=== PATIENT | male | born 1975 | race African-American/Black ===

== ENCOUNTER 2018-02-20 11:07 | Emergency (ER) | payer OTHER ==
[~2018-02-20] VITALS: Ht 172.7 cm; Wt 67.4 kg
[2018-02-20 11:18] VITALS: TEMP 36.6; O2SAT 98; Ht 172.7 cm; Wt 67.4 kg
[2018-02-20] MEDS ORDERED: AMOX500C3 PO (11:34)
[2018-02-20] MEDS ORDERED: SODIUM CHLORIDE 0.9% 1000ML 1,000 ML IV STA (11:38)
[2018-02-20] MEDS ORDERED: SODIUM CHLORIDE 0.9% 1000ML 1,000 ML IV ONE (11:38)
--- NOTE | 2018-02-20 11:41 | EMERGENCY ROOM VISIT NOTE ---
History Report prepared by Yaneli: Randal Panchal Under the Supervision of: Dr. Daniel Torres M.D. First contact with patient: 11:31 Chief Complaint: CARDIAC ASSESSMENT Stated Complaint: SYNCOPE Nursing Triage Summary: pt was outside smoking found unresponsive at 0950. pt denies any chest pain, has neck pain on right side x1 week. on amoxicillin for abscess in left nare. lungs clear. History of Present Illness The patient is a 42 year old male who presents to the Emergency Room with complaints of a resolved episode of syncope that occurred about 2 hours prior to arrival. The patient was found unresponsive outside. He states the last thing he remembers was going outside to smoke a cigarette. He notes he does not drink a lot of fluids. He also complains of right sided neck pain for a week and shortness of breath. He denies melena, chest pain, headache, or abdominal pain. The patient notes he was told he has Hepatitis C but is not being treated. He did take a pill prior to this that he says was amoxicillin that he got from somebody else in care home. Denies that he was trying to hurt himself. 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 A total of 10 systems reviewed and were otherwise negative. Past Medical & Surgical Medical Problems: (1) Hepatitis C Old medical records were reviewed. Nurse's notes were reviewed and I agree with. Social History Smoking Status: Current Every Day Smoker Current/Historical Medications Miscellaneous Medications Amoxicillin (Amoxil), 1 TAB PO Allergies Coded Allergies: No Known Allergies (Unverified , 02/20/18) Physical Exam Vital Signs Date Time Temp Pulse Resp B/P (MAP) Pulse Ox O2 Delivery O2 Flow Rate FiO2 02/20/18 14:28 65 22 110/76 98 02/20/18 13:17 66 02/20/18 13:08 70 18 115/75 98 Room Air 02/20/18 12:12 58 16 109/71 98 Room Air 02/20/18 11:18 98 Room Air 02/20/18 11:18 36.6 63 18 103/72 98 Room Air 02/20/18 11:15 76 Physical Exam General: Non-ill appearing middle age male in no acute distress. HEENT: Normal cephalic atraumatic. Pupils are equal round and reactive to light. Extraocular movements are intact. Oropharynx is pink with moist mucous membranes. No swelling of the mouth lips or tongue. Neck: Supple with a midline trachea. No meningeal signs or stiffness, no JVD or bruits. No Stridor. Chest: Clear to auscultation bilaterally. No wheezes or rhonchi. No increased work of breathing. Heart: regular rate and rhythm. Abdomen: Soft nontender, nondistended without rebound guarding or rigidity. Extremities: No cyanosis clubbing or edema. No calf tenderness or assymetry Spine/Back. Non tender to palpation. No CVA tenderness Skin: Good turgor without rashes. Neurologic exam: Cranial nerves two through 12 are intact. Motor and sensation are intact and symmetrical throughout. Medical Decision & Procedures ER Provider Diagnostic Interpretation: Radiology results as stated below per my review and radiologist interpretation: CHEST ONE VIEW PORTABLE CLINICAL HISTORY: 42 years-old Male presenting with CHEST PAIN. TECHNIQUE: Portable upright AP view of the chest was obtained. COMPARISON: None. FINDINGS: Cardiomediastinal silhouette normal. Lungs and pleural spaces clear. Osseous structures normal. Upper abdomen normal. IMPRESSION: 1. No acute cardiopulmonary disease. Electronically signed by: Reji Hannah M.D. 02/20/2018 12:16 PM Dictated Date/Time: 02/20/2018 12:15 PM Laboratory Results 02/20/18 10:42 Red Blood Count 5.13, Mean Corpuscular Volume 93.6, Mean Corpuscular Hemoglobin 31.2, Mean Corpuscular Hemoglobin Concent 33.3, Mean Platelet Volume 11.4, Neutrophils (%) (Auto) 65.7, Lymphocytes (%) (Auto) 28.3, Monocytes (%) (Auto) 5.2, Eosinophils (%) (Auto) 0.6, Basophils (%) (Auto) 0.1, Neutrophils # (Auto) 4.66, Lymphocytes # (Auto) 2.01, Monocytes # (Auto) 0.37, Eosinophils # (Auto) 0.04, Basophils # (Auto) 0.01 02/20/18 10:42 Test 02/20/18 10:42 02/20/18 12:10 02/20/18 13:12 White Blood Count 7.10 K/uL (4.8-10.8) Red Blood Count 5.13 M/uL (4.7-6.1) Hemoglobin 16.0 g/dL (14.0-18.0) Hematocrit 48.0 % (42-52) Mean Corpuscular Volume 93.6 fL (80-100) Mean Corpuscular Hemoglobin 31.2 pg (25-34) Mean Corpuscular Hemoglobin Concent 33.3 g/dl (32-36) Platelet Count 162 K/uL (130-400) Mean Platelet Volume 11.4 fL (7.4-10.4) Neutrophils (%) (Auto) 65.7 % Lymphocytes (%) (Auto) 28.3 % Monocytes (%) (Auto) 5.2 % Eosinophils (%) (Auto) 0.6 % Basophils (%) (Auto) 0.1 % Neutrophils # (Auto) 4.66 K/uL (1.4-6.5) Lymphocytes # (Auto) 2.01 K/uL (1.2-3.4) Monocytes # (Auto) 0.37 K/uL (0.11-0.59) Eosinophils # (Auto) 0.04 K/uL (0-0.5) Basophils # (Auto) 0.01 K/uL (0-0.2) RDW Standard Deviation 42.8 fL (36.4-46.3) RDW Coefficient of Variation 12.5 % (11.5-14.5) Immature Granulocyte % (Auto) 0.1 % Immature Granulocyte # (Auto) 0.01 K/uL (0.00-0.02) Anion Gap 7.0 mmol/L (3-11) Est Creatinine Clear Calc Drug Dose 69.3 ml/min Estimated GFR () 76.7 Estimated GFR (Non- 66.2 BUN/Creatinine Ratio 8.2 (10-20) Calcium Level 8.5 mg/dl (8.5-10.1) Total Bilirubin 0.5 mg/dl (0.2-1) Direct Bilirubin 0.1 mg/dl (0-0.2) Aspartate Amino Transf (AST/SGOT) 38 U/L (15-37) Alanine Aminotransferase (ALT/SGPT) 60 U/L (12-78) Alkaline Phosphatase 71 U/L (45-117) Total Protein 7.2 gm/dl (6.4-8.2) Albumin 3.6 gm/dl (3.4-5.0) Lipase 168 U/L (73-393) Urine Opiates Screen NEG (NEG) Urine Methadone, Qualitative NEG (NEG) Urine Barbiturates NEG (NEG) Urine Phencyclidine (PCP) Level NEG (NEG) Ur Amphetamine/Methamphetamine NEG (NEG) MDMA (Ecstasy) Screen NEG (NEG) Urine Benzodiazepines Screen NEG (NEG) Urine Cocaine Metabolite NEG (NEG) Urine Marijuana (THC) NEG (NEG) Bedside Troponin I < 0.030 ng/ml (0-0.045) Laboratory studies as stated above per my review. Medications Administered Medications (Trade) Dose Ordered Sig/[place] Route Start Time Stop Time Status Last Admin Dose Admin Sodium Chloride 1,000 ml @ 999 mls/hr Q1H1M STAT IV 02/20/18 11:38 02/20/18 12:38 DC 02/20/18 12:10 999 MLS/HR Sodium Chloride 1,000 ml @ 200 mls/hr Q5H ONCE IV 02/20/18 11:38 02/20/18 15:14 DC 02/20/18 12:54 200 MLS/HR ECG Per My Interpretation Indication: syncope Rate (beats per minute): 65 Rhythm: normal sinus Findings: no acute ischemic change, no ectopy, other (early repolarization changes) Comparison ECG Date: no prior available ED Course 1131: Past medical records reviewed. The patient was evaluated in room A10, and a complete history and physical examination were performed. 1138: Ordered Sodium Chloride 1000 ml @ 200 mls/hr IV, Sodium Chloride 1000 ml @ 999 mls/hr IV. 1235: EKG from the custodial showed normal sinus rhythm with a rate of 74. Diffuse ST segment elevations with early repolarization changes. No old EKG. 1245: I checked on the patient. He is sleeping. 1410: Patient's second EKG shows normal sinus rhythm with a rate of 65. Early repolarization. No change from EKG #1. 1420: Upon reevaluation, the patient is resting comfortably and in no distress. I discussed the results and treatment plan with him. He verbalized agreement of the treatment plan. The patient was discharged home. Medical Decision Differential Diagnosis: syncope, arrhythmia, seizure, infection, toxicologic process, electrolyte or metabolic abnormality. This patient comes in as described above. He had a syncopal episode. This occurred after ingesting a pill that he says was amoxicillin. He was also hot and outside. He had no chest pain or shortness breath and is asymptomatic at present. EKG shows early repolarization but no definite ischemic changes otherwise. IV access established and he hydrated 1 L IV normal saline bolus. he had 2 EKGs here as well as 2 troponins that were both unremarkable and unchanged and there are no serial changes. There is no change compared to the one in the care home. He has no significant right or metabolic abnormalities. Chest x-ray is unremarkable. He has no neurologic symptoms. He has nothing to suggest sepsis or GI bleed. He is feeling better would like to go and will be discharged back to the custodial. Medication Reconcilliation Current Medication List: was personally reviewed by me Blood Pressure Screening Patient's blood pressure: Normal blood pressure Impression Primary Impression: Syncope Scribe Attestation The scribe's documentation has been prepared under my direction and personally reviewed by me in its entirety. I confirm that the note above accurately reflects all work, treatment, procedures, and medical decision making performed by me. Departure Information Dispostion Home / Self-Care Referrals Ginna CORRALES (PCP) Patient Instructions My [facility] [address] Additional Instructions Rest. Drink plenty of fluids Return if: Chest pain, shortness of breath, worsening symptoms, any new problems or concerns Follow-up with your doctor this week for recheck
[2018-02-20 11:50] LABS: BASO % 0.1 %; BASO ABS # 0.01 K/uL (0-0.2); EOS % 0.6 %; EOS ABS # 0.04 K/uL (0-0.5); IG# 0.01 K/uL (0.00-0.02); LYMPH % 28.3 %; LYMPH ABS # 2.01 K/uL (1.2-3.4); MEAN CELL VOLUME 93.6 fL (80-100); MEAN CORPUSCULAR HEMOGLOBIN 31.2 pg (25-34); MEAN CORPUSCULAR HGB CONC 33.3 g/dl (32-36); MEAN PLATELET VOLUME 11.4 fL (7.4-10.4); MONO % 5.2 %; MONO ABS # 0.37 K/uL (0.11-0.59); NEUT % 65.7 %; NEUT ABS # 4.66 K/uL (1.4-6.5); PLATELET COUNT 162 K/uL (130-400); RED CELL DISTRIBUTION WIDTH CV 12.5 % (11.5-14.5); RED CELL DISTRIBUTION WIDTH SD 42.8 fL (36.4-46.3)
[2018-02-20 12:11] LABS: ALBUMIN 3.6 gm/dl (3.4-5.0); CALCIUM 8.5 mg/dl (8.5-10.1); CREATININE 1.31 mg/dl (0.60-1.40); TOTAL PROTEIN 7.2 gm/dl (6.4-8.2)
--- NOTE | 2018-02-20 12:17 | DIAGNOSTIC IMAGING REPORT ---
CHEST ONE VIEW PORTABLE CLINICAL HISTORY: 42 years-old Male presenting with CHEST PAIN. TECHNIQUE: Portable upright AP view of the chest was obtained. COMPARISON: None. FINDINGS: Cardiomediastinal silhouette normal. Lungs and pleural spaces clear. Osseous structures normal. Upper abdomen normal. IMPRESSION: 1. No acute cardiopulmonary disease. Electronically signed by: Reji Hannah M.D. 02/20/2018 12:16 PM Dictated Date/Time: 02/20/2018 12:15 PM
[2018-02-20 14:28] VITALS: BP 110/76; PULSE 65; O2SAT 98
== END 2018-02-20 14:29 | disposition home or self-care (01) ==
LOC: C.EDA 11:09
DX: R55 Syncope and collapse (principal); F17.200 Nicotine dependence, unspecified, uncomplicated; B19.20 Unspecified viral hepatitis C without hepatic coma